=== PATIENT | female | born 1955 | race African-American/Black ===

== ENCOUNTER 2016-10-03 14:57 | Emergency (ER) | payer MEDICARE ==
[~2016-10-03] VITALS: Ht 165.1 cm; Wt 68.0 kg
[2016-10-03] MEDS ORDERED: IPRATRPIUM/ALBUTEROL 0.5/2.5MG 3 ML NEBU. NEB ONE (15:30)
[2016-10-03] MEDS ORDERED: PREDNISONE 10 MG TABLET PO ONE (15:30)
--- NOTE | 2016-10-03 15:32 | PHYS DOC ---
Past Medical History Past Medical History: Arthritis, COPD, Depression, GERD, Hypertension Past Surgical History: Appendectomy, , Tonsillectomy, Tubal ligation, Other Additional Past Surgical Histo: DENTAL Alcohol Use: Occasionally Drug Use: Marijuana Adult General Chief Complaint Chief Complaint: SHORTNESS OF BREATH HPI HPI Patient is a 60 year old female who presents with cough, shortness of breath. Patient reports for the past 3 days she has had productive cough. This is accompanied by mild shortness of breath, chills, aching all over, sore throat. No chest pain. She has been using her albuterol inhaler partial relief. She has not taken anything for pain. No clear inciting or mitigating factors. Review of Systems Review of Systems Constitutional: Chills Eyes: Denies change in visual acuity or eye pain HENT: Sore throat Respiratory: Productive cough, shortness of breath Cardiovascular: Denies chest pain GI: Denies abdominal pain, nausea, vomiting, bloody stools or diarrhea : Denies dysuria or hematuria Musculoskeletal: General body aches Integument: Denies rash or skin lesions Neurologic: Denies headache, focal weakness or sensory changes Current Medications Current Medications Current Medications Medications (Trade) Dose Ordered Sig/[place] Start Time Stop Time Status Last Admin Dose Admin Albuterol/ Ipratropium (Duoneb) 6 ml 1X ONCE 10/03/16 15:30 10/03/16 15:31 DC 10/03/16 15:47 6 ML Benzonatate (Tessalon Perle) 100 mg 1X ONCE 10/03/16 17:45 10/03/16 17:46 DC 10/03/16 17:50 100 MG Ibuprofen 600 mg 600 mg 1X ONCE 10/03/16 15:45 10/03/16 15:46 DC 10/03/16 15:49 600 MG Prednisone (Prednisone) 60 mg 1X ONCE 10/03/16 15:30 10/03/16 15:31 DC 10/03/16 15:36 60 MG Sodium Chloride (Iv Sodium Chloride 0.9% 500ml Bag) 500 ml @ 500 mls/hr 1X ONCE 10/03/16 15:45 10/03/16 16:44 DC 10/03/16 15:49 500 MLS/HR Allergies Allergies Allergies Coded Allergies Type Severity Reaction Last Updated Verified No Known Drug Allergies 02/13/15 No Physical Exam Physical Exam Constitutional: Well developed, well nourished, no acute distress, non-toxic appearance HENT: Normocephalic, atraumatic, bilateral external ears normal Eyes: EOMI, conjunctiva normal, no discharge Neck: Normal range of motion, no stridor Cardiovascular: Heart rate normal, regular rhythm, no murmur Lungs & Thorax: Poor air movement, diffuse expiratory wheezing Abdomen: Bowel sounds normal, soft, non-distended, no TTP Skin: Warm, dry, no erythema, no rash Extremities: No obvious deformity, no edema Neurologic: Alert and oriented X 3, no gross deficits noted Current Patient Data Vital Signs Vital Signs Date Time Temp Pulse Resp B/P Pulse Ox O2 Delivery O2 Flow Rate FiO2 10/03/16 17:35 70 129/69 96 Room Air 10/03/16 15:10 98.2 18 98.2 Lab Values Laboratory Tests Test 10/03/16 15:35 10/03/16 15:40 Influenza Type A Antigen Negative (NEGATIVE) Influenza Type B Antigen Negative (NEGATIVE) White Blood Count 5.2x10^3/uL (4.0-11.0) Red Blood Count 4.14x10^6/uL (3.50-5.40) Hemoglobin 13.5g/dL (12.0-15.5) Hematocrit 40.5% (36.0-47.0) Mean Corpuscular Volume 98fL (79-100) Mean Corpuscular Hemoglobin 33pg (25-35) Mean Corpuscular Hemoglobin Concent 33g/dL (31-37) Red Cell Distribution Width 13.7% (11.5-14.5) Platelet Count 295x10^3/uL (140-400) Neutrophils (%) (Auto) 37% (31-73) Lymphocytes (%) (Auto) 48% (24-48) Monocytes (%) (Auto) 8% (0-9) Eosinophils (%) (Auto) 7% (0-3) H Basophils (%) (Auto) 1% (0-3) Neutrophils # (Auto) 1.9x10^3uL (1.8-7.7) Lymphocytes # (Auto) 2.5x10^3/uL (1.0-4.8) Monocytes # (Auto) 0.4x10^3/uL (0.0-1.1) Eosinophils # (Auto) 0.4x10^3/uL (0.0-0.7) Basophils # (Auto) 0.0x10^3/uL (0.0-0.2) Sodium Level 144mmol/L (136-145) Potassium Level 3.4mmol/L (3.5-5.1) L Chloride Level 106mmol/L (98-107) Carbon Dioxide Level 30mmol/L (21-32) Anion Gap 8 (6-14) Blood Urea Nitrogen 17mg/dL (7-20) Creatinine 1.2mg/dL (0.6-1.0) H Estimated GFR (Cockcroft-Gault) 55.4 Glucose Level 121mg/dL (70-99) H Calcium Level 9.3mg/dL (8.5-10.1) Troponin I Quantitative < 0.017ng/mL (0.000-0.055) Laboratory Tests 10/03/16 15:40 Laboratory Tests 10/03/16 15:40 EKG EKG EKG (my read): sinus rhythm, rate 71, normal axis, QTc 486ms, no acute ischemic changes Radiology/Procedures Radiology/Procedures CXR: IMPRESSION: 1. Chronic obstructive pulmonary disease. No confluent infiltrates. Course & Med Decision Making Course & Med Decision Making Pertinent Labs and Imaging studies reviewed. (See chart for details) Patient is 60-year-old female who presents with cough, shortness of breath. Suspect viral respiratory illness causing COPD exacerbation. Will check EKG, chest x-ray, labs to evaluate. Small fluid bolus, ibuprofen, steroids, breathing treatment ordered for relief of symptoms. EKG and imaging results as above. Labs unremarkable. Discussed results with patient, who is breathing much easier after the breathing treatment. Will plan discharge home with prescription for steroid burst, Tessalon, ibuprofen. Patient has sufficient albuterol inhaler at home and does not need refill. Given instructions for close follow-up as outpatient with PCP and strict return precautions. Dragon Disclaimer Dragon Disclaimer This electronic medical record was generated, in whole or in part, using a voice recognition dictation system. Departure Departure Impression: Primary Impression: COPD exacerbation Additional Impression: Upper respiratory infection Disposition: HOME, SELF-CARE Condition: IMPROVED Referrals: DEREK PEREZ MD (PCP) Patient Instructions: Chronic Obstructive Pulmonary Disease Exacerbation, Upper Respiratory Infection, Adult Additional Instructions: Thank you for allowing us to provide care today in the Emergency Department. Take the provided medication as directed. Continue to use your albuterol inhaler as needed. Schedule a follow up appointment with your primary care doctor. Return promptly to the Emergency Department if you develop any new or concerning symptoms. Scripts Ibuprofen 600 Mg Vssyeq100 Mg PO Q6HRS PRN body aches #20 Prov:TAO REDDING MD 10/03/16 Prednisone 50 Mg Tablet1 Tab PO DAILY #4 TAB start taking 10/04/16 Prov:TAO REDDING MD 10/03/16 Benzonatate (Tessalon Perle)100 Mg Capsule1 Cap PO TID PRN COUGH #21 CAP Prov:TAO REDDING MD 10/03/16 Problem Qualifiers TAO REDDING MD Oct 03, 2016 15:32
[2016-10-03] MEDS ORDERED: IV NORMAL SALINE 500ML BAG 500 ML IV ONE (15:45)
[2016-10-03] MEDS ORDERED: IBUPROFEN 600 MG TABLET. PO ONE (15:45)
--- NOTE | 2016-10-03 15:54 | EKG ---
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
[2016-10-03 16:02] LABS: BASO % 1 % (0-3); EOS % 7 % (0-3); HEMATOCRIT 40.5 % (36.0-47.0); HEMOGLOBIN 13.5 g/dL (12.0-15.5); LYMPH # 2.5 x10^3/uL (1.0-4.8); LYMPH % 48 % (24-48); MEAN CORPUSCULAR HEMOGLOBIN 33 pg (25-35); MEAN CORPUSCULAR HGB CONC 33 g/dL (31-37); MEAN CORPUSCULAR VOLUME 98 fL (79-100); MONO % 8 % (0-9); NEUT % 37 % (31-73); PLATELET COUNT 295 x10^3/uL (140-400); RED BLOOD COUNT 4.14 x10^6/uL (3.50-5.40); RED CELL DISTRIBUTION WIDTH 13.7 % (11.5-14.5); WHITE BLOOD COUNT 5.2 x10^3/uL (4.0-11.0)
--- NOTE | 2016-10-03 16:16 | RAD ---
EXAM: Chest 2 views. HISTORY: Shortness of breath, cough. COMPARISON: 04/19/1715. FINDINGS: Frontal and lateral views of the chest are obtained. Hyperinflation is consistent with chronic obstructive pulmonary disease. There are no confluent infiltrates. There is no pneumothorax or pleural effusion. The heart is not clearly enlarged given this projection. The aorta is calcified and tortuous. This results in stable prominence of the lower right paratracheal stripe. IMPRESSION: 1. Chronic obstructive pulmonary disease. No confluent infiltrates.
[2016-10-03 16:30] LABS: CALCIUM 9.3 mg/dL (8.5-10.1); CREATININE 1.2 mg/dL (0.6-1.0); GFR 55.4; POTASSIUM 3.4 mmol/L (3.5-5.1)
[2016-10-03 17:15] LABS: OBC FLU VALID
[2016-10-03 17:35] VITALS: BP 129/69
[2016-10-03] MEDS ORDERED: BENZONATATE 100 MG CAPSULE. PO ONE (17:45)
[2016-10-03] MEDS ORDERED: IBUP-985 PO (17:49)
[2016-10-03] MEDS ORDERED: PRED50TA PO (17:49)
[2016-10-03] MEDS ORDERED: BENZ100C PO (17:49)
--- NOTE | 2016-10-04 09:53 | RAD ---
EXAM: Chest 1 view. HISTORY: Shortness of breath, cough. COMPARISON: 04/19/1715. FINDINGS: Hyperinflation is consistent with chronic obstructive pulmonary disease. There are no confluent infiltrates. There is no pneumothorax or pleural effusion. The heart is not clearly enlarged given this projection. The aorta is calcified and tortuous. This results in stable prominence of the lower right paratracheal stripe. IMPRESSION: 1. Chronic obstructive pulmonary disease. No confluent infiltrates. DICTATED and SIGNED BY: SEBAS MOORE MD DATE: 10/03/16 [id number]ITAL[facility]
== END 2016-10-03 18:00 | disposition home or self-care (01) ==
LOC: ER 14:57
DX: J44.1 Chronic obstructive pulmonary disease with (acute) exacerbation (principal); M19.90 Unspecified osteoarthritis, unspecified site; I10 Essential (primary) hypertension; F12.10 Cannabis abuse, uncomplicated; Z90.89 Acquired absence of other organs
CPT/HCPCS: 36415; 71010; 80048; 84484; 85027; 87804; 93005; 94640; 96360; 99285; J7040; J7512; J7620; 71020